=== PATIENT | male | born 1990 | race Caucasian/White ===

== ENCOUNTER 2016-12-20 04:04 | Emergency (ER) | payer OTHER ==
[~2016-12-20] VITALS: Ht 182.9 cm; Wt 83.9 kg
[2016-12-20 04:04] VITALS: BP 141/87; PULSE 88; RESP 14; TEMP 98; O2SAT 96
--- NOTE | 2016-12-20 04:04 | NUR ---
Patient to [facility] for evaluation. Side rails up. Report given to JOE RODRIGES.
--- NOTE | 2016-12-20 04:10 | NUR ---
Pt accompanied to ED for blood alcohol drawn. A&Ox4, denies SOb or chestpain, denies N/V/D, skin intact, no sign of distress. Will continue to monitor
--- NOTE | 2016-12-20 04:24 | NUR ---
Written and verbal consent obtained from patient for blood alcohol, name and verified by patient. Disinfected patient's skin with povidone-iodine that did not contain alcohol or other volatile organic compound. Collected the blood from the subject named by venipuncture, in the presence of Officer [id number]. Used a sterile, dry hypodermic needle and dry vacuum blood collection. The dry vacuum blood collection was supplied by the officer named above. Withdrew a specimen of blood from right antecubital of the subject named above. Inverted the blood tube several times to ensure that the preservative and anticoagulant were thoroughly mixed in the blood specimen. I initialed the blood tube label for identification. The labeled blood tube was handed directly to the Officer named above. The blood tube stopper remained in place while I had possession of the blood tube. The Officer placed tube into envelope and sealed it in my presence. Envelope initialed by myself and Officer named above. Patient tolerated well, bandage applied, and bleeding controlled.
--- NOTE | 2016-12-20 04:30 | NUR ---
at bedside examining pt
[2016-12-20 04:50] VITALS: BP 136/82; PULSE 86; RESP 14; TEMP 98; O2SAT 96
--- NOTE | 2016-12-20 04:50 | NUR ---
Patient given written and verbal discharge instructions and verbalizes understanding. ER MD Jaime discussed with patient the results and treatment provided. Patient in stable condition. ID arm band removed. No rx given. Patient educated on pain management and to follow up with PMD. Pain Scale 0/10 Opportunity for questions provided and answered. Pt accompanied by 2 CHPs
== END 2016-12-20 04:50 ==
LOC: SED 04:04
DX: Z02.89 Encounter for other administrative examinations (principal); R11.2 Nausea with vomiting, unspecified
CPT/HCPCS: 99283